=== PATIENT | male | born 1950 | race Caucasian/White ===

== ENCOUNTER 2024-01-19 14:59 | Emergency (ER) | payer MEDICARE, SELFPAY ==
[2024-01-19 15:02] VITALS: BP 144/86; PULSE 71; RESP 16; TEMP 35.9; O2SAT 98; BMI 29.8
--- NOTE | 2024-01-19 15:08 | VDLE_ITS ---
Reason For Study: Right leg pain RIGHT GSV is normal. CFV is compressible, spontaneous, phasic, competent and demonstrates normal augmentation. FV is compressible, spontaneous, phasic, competent and demonstrates normal augmentation. POP V is compressible, spontaneous, phasic, competent and demonstrates normal augmentation. T/P Trunk is compressible. PTV is compressible. RT PerV is compressible. Procedure This is a venous duplex using B-mode, color flow and spectral Doppler. Exam performed portable in ED. A preliminary report was called and/or faxed to Dr. Lemon. VL/Venous Duplex US, Unilateral Interpretation Summary Deep veins of the right lower extremity are patent and compressible segmentally . There is no evidence of right lower extremity deep vein thrombosis. The right great sapheno us vein appears patent and compressible segmentally. Ordering Physician: Jaylene Mendoza Performed By: Claritza Kingsley RVT
--- NOTE | 2024-01-19 15:28 | ED.VIS.LOWEX ---
HPI History of Present Illness Chief Complaint: Lower Extremity Injury Narrative Narrative: 73-year-old male presents with swelling of his right lower extremity, right upper thigh pain, and discoloration that he noticed today. He relates history that he left [place] on Wednesday, 5 days ago. He got to [place] on Wednesday. He noticed pain and swelling of his right thigh. It was today when he noticed discoloration of his leg on his posterior knee, there was bruising. He denies any chest pain or shortness of breath. PFSH PFSH Allergy/AdvReac Type Severity Reaction Status Date / Time codeine Allergy Intermediate Other Verified 01/19/24 15:00 Sulfa (Sulfonamide Allergy Intermediate Rash Verified 01/19/24 15:00 Antibiotics) ROS ROS ED ROS Narrative Constitutional: No fever, no chills. HEENT: No sore throat. No neck pain. No loss of vision. No rhinorrhea. Cardiovascular: No chest pain. No palpitations. No pedal edema. Respiratory: No cough, no shortness of breath. Abdominal: No abdominal pain. No nausea. No vomiting. Genitourinary: No dysuria. No hematuria. Musculoskeletal: Right inner thigh pain. No arthralgias. Neurologic: No headaches. No dizziness. No lightheadedness. Skin: No rash. Positive bruising of calf and posterior medial knee. Psychiatric: No depression. No anxiety. EXAM Physical Exam Narrative Exam Narrative: Afebrile. Vital signs noted. HEENT: Normocephalic. Atraumatic. PERRL, EOMI. Neck soft and supple. No point tenderness or step off. Cardiovascular: Regular rate and rhythm. No murmurs, rubs, or gallops appreciated. Respiratory: No tachypnea. Lungs clear to auscultation bilaterally. Gastrointestinal: Abdomen soft, nontender, with normoactive bowel sounds. No rebound or guarding. Neurological: Awake. Alert. Nonfocal, nonlateralizing. Skin: No rash. Positive ecchymosis right medial calf and right posterior knee. No pallor. Musculoskeletal: Right pedal edema. Full range of motion extremities. Const Vital Signs: 01/19/24 15:02 01/19/24 15:02 Temperature 96.6 F L 96.6 F L Temperature Source Temporal Temporal Pulse Rate 71 71 Respiratory Rate 16 16 Blood Pressure 144/86 H 144/86 H Blood Pressure Mean 105 105 Pulse Ox 98 98 Oxygen Delivery Method Room Air Room Air MDM MDM MDM Narrative Medical decision making narrative: In the differential diagnosis is muscle tear versus DVT. The discoloration and ecchymosis could be more of a dependent ecchymosis from right muscular thigh tear of the muscle belly. Ultrasound to rule out DVT was obtained and reviewed. I reviewed the report and discussed the patient with the solar field service technician, and he is negative for DVT. Based on his clinical examination, where he is tender in the medial posterior thigh/hamstring area, he could have more of a tendon strain versus muscle belly tear. He will be placed in an Phani wrap. He was told to start his Xarelto again and discontinue the use of ibuprofen but take something like Tylenol for pain. He is to follow-up with his primary care provider when he returns to his hometown. I do not feel he requires laboratory work. He will continue elevation of his right leg when possible. Return instructions to the emergency department were reviewed. Disposition is discharged home in stable condition. History & Record Review Additional record(s) reviewed:: No prior records Discharge Plan Triage Chief Complaint: Lower Extremity Injury ED Provider: Jj Lemon Dx/Rx/DC Orders Clinical Impression: Strain of right hamstring muscle, Strain of tendon of right hamstring muscle, Muscle tear Instructions: ED Bandage Elastic Wrap, ED Muscle Strain, Extremity Primary Care Provider: Tvao Argueta MD Referrals: [facility] Doctor,Out of [Non-Staff] - Activity Restrictions/Additional Instructions: Restart your Xarelto as previously directed. Take Tylenol as directed for pain. Follow-up with your primary care provider upon your return. Disposition Disposition: Home, Self Care
== END 2024-01-19 16:25 | disposition home or self-care (01) ==
PROVIDERS: Emergency Provider Emergency Medicine; Visit Provider Emergency Medicine
DX: M79.89 Other specified soft tissue disorders (principal); S76.311A Strain of muscle, fascia and tendon of the posterior muscle group at thigh level, right thigh, initial encounter; X58.XXXA Exposure to other specified factors, initial encounter
CPT/HCPCS: 93971; 99282